=== PATIENT | female | born 1970 | race Caucasian/White ===

== ENCOUNTER 2019-12-19 18:54 | Emergency (ER) | payer BC ==
[~2019-12-19] VITALS: Ht 167.6 cm; Wt 95.8 kg
--- NOTE | 2019-12-19 19:32 | NUR ---
PT STATES AT AROUND 1820 PATIENT [place] [employer] AND STARTED FEELING DIZZY, LIGHT HEADED, NUMBNESS IN BOTH UPPER EXTREMITIES, AND SOME MILD WEAKNESS. PT SATES SYMPTOMS LASTED FOR ABOUT 15 MINUTES AND HAVE SINCE GONE AWAY. PT STATES NOT FEELING DIZZY, OR ANY NUMBNESS. PT A/O X 4, NO PRONATOR DRIFT, EQUAL STRENGTH IN ALL EXTREMITES. ERP EVALUATED PT, LABS DRAWN, EKG AT BEDSIDE, SAFETY MEASURES IN PLACE.
[2019-12-19 19:42] LABS: BASOPHILS # (AUTO) 0.07 x10^3/uL (0-0.1); BASOPHILS % (AUTO) 1 % (0-1); EOSINOPHILS # (AUTO) 0.15 x10^3/uL (0-0.4); EOSINOPHILS % (AUTO) 2 % (1-7); LYMPHOCYTES # (AUTO) 2.67 x10^3/uL (1-3.4); LYMPHOCYTES % (AUTO) 30 % (22-44); MD NO; MEAN CORPUSCULAR HEMOGLOBIN 31.6 pg (27.0-34.8); MEAN CORPUSCULAR VOLUME 92.8 fL (80-100); MEAN PLATELET VOLUME 8.1 fL (7.4-10.4); MONOCYTES % (AUTO) 5 % (2-9); NEUTROPHILS # (AUTO) 5.56 x10^3/uL (1.8-6.8); NEUTROPHILS % (AUTO) 63 % (42-75); PLATELET COUNT 283 x10^3/uL (130-400); RED BLOOD COUNT 4.85 x10^6/uL (3.82-5.3); RED CELL DISTRIBUTION WIDTH 13.2 % (9.6-15.2)
[2019-12-19 19:48] LABS: ALBUMIN 3.6 g/dL (3.4-5.0); ANION GAP 7 mmol/L (5-15); CALCIUM 9.1 mg/dL (8.5-10.1); CHLORIDE 112 mmol/L (98-107)
[2019-12-19 20:32] VITALS: BP 98/64
== END 2019-12-19 20:37 | disposition home or self-care (01) ==
LOC: ED 19:51
DX: R42 Dizziness and giddiness (principal); E11.9 Type 2 diabetes mellitus without complications; R94.31 Abnormal electrocardiogram [ECG] [EKG]
CPT/HCPCS: 36415; 80048; 82040; 85025; 93005; 99284